=== PATIENT | male | born 1995 | race African-American/Black ===

== ENCOUNTER 2021-04-22 17:19 | Emergency (ER) | payer SELFPAY ==
[~2021-04-22] VITALS: Ht 182.9 cm; Wt 91.0 kg
[2021-04-22 21:45] LABS: BASOPHILS % 0.3 % (0.0-2.0); EOSINOPHILS % 0.6 % (0.0-5.0); HEMATOCRIT. 47.6 % (42.0-52.0); HEMOGLOBIN. 16.3 g/dL (14.0-18.0); MEAN CORPUSCULAR HEMOGLOBIN 28.6 pg (28.0-32.0); MEAN CORPUSCULAR VOLUME 83.5 fL (80.0-94.0); MEAN PLATELET VOLUME 9.3 fl (7.4-10.4); MONOCYTES % 6.6 % (2.0-8.0); NEUTROPHILS % 59.5 % (40.0-76.0); PLATELET 203 x1000/uL (130-400); RED CELL DISTRIBUTION WIDTH 13.8 % (11.6-14.6)
[2021-04-22 21:53] LABS: CHLORIDE 110 mEq/L (98-107)
[2021-04-22 21:56] LABS: ETHANOL BLOOD < 10 mg/dL
[2021-04-22 22:31] LABS: CLARITY URINE CLEAR (CLEAR); COLOR URINE YELLOW (YELLOW); KETONES URINE 1+ (NEGATIVE); LEUKOCYTE ESTERASE URINE NEGATIVE (NEGATIVE); NITRITE URINE NEGATIVE (NEGATIVE); OCCULT BLOOD URINE NEGATIVE (NEGATIVE); PH URINE 5.5 (4.5-8.0); PROTEIN URINE NEGATIVE (NEGATIVE); SPECIFIC GRAVITY URINE 1.022 (1.005-1.030)
[2021-04-22 22:42] LABS: *AMPHETAMINES SCREEN URINE NEGATIVE (NEGATIVE); *BARBITURATES SCREEN URINE NEGATIVE (NEGATIVE); *BENZODIAZEPINES SCREEN URINE NEGATIVE (NEGATIVE); *COCAINE SCREEN URINE NEGATIVE (NEGATIVE); METHADONE URINE SCREEN NEGATIVE (NEGATIVE); OPIATES URINE SCREEN NEGATIVE (NEGATIVE)
[2021-04-22 22:44] LABS: CANNABINOID URINE SCREEN NEGATIVE (NEGATIVE); PHENCYCLIDINE URINE SCREEN NEGATIVE (NEGATIVE)
[2021-04-23] MEDS: BENZTROPINE MESYLATE 1MG TABLET PO SCH (21:21)
[2021-04-23] MEDS: ARIPIPRAZOLE 5MG TABLET PO SCH (21:21)
[2021-04-24] MEDS: BENZTROPINE MESYLATE 1MG TABLET PO SCH ×2 (09:30→17:47)
[2021-04-24] MEDS: ARIPIPRAZOLE 5MG TABLET PO SCH (09:30)
[2021-04-25] MEDS: ARIPIPRAZOLE 5MG TABLET PO SCH (09:08)
[2021-04-25] MEDS: BENZTROPINE MESYLATE 1MG TABLET PO SCH (09:08)
[2021-04-25 10:00] VITALS: BP 121/69
== END 2021-04-23 23:59 ==
LOC: EDBD 17:19 → ER 17:19
DX: F23 Brief psychotic disorder (principal); Z20.822 Contact with and (suspected) exposure to COVID-19; Z86.59 Personal history of other mental and behavioral disorders; Z88.8 Allergy status to other drugs, medicaments and biological substances
CPT/HCPCS: 36415; 70450; 80053; 80305; 80307; 80320; 80329; 81003; 85025; 99285; C9803; U0003; U0005; G0480